=== PATIENT | female | born 1995 | race Caucasian/White ===

== ENCOUNTER → 2022-09-10 09:20 | Outpatient (BNVA) | payer OTHER, SELFPAY | PROVIDERS: Visit Provider Nurse Practitioner Women's Health | DX: O09.899 Supervision of other high risk pregnancies, unspecified trimester (principal); O99.210 Obesity complicating pregnancy, unspecified trimester; Z3A.00 Weeks of gestation of pregnancy not specified | CPT/HCPCS: 81000; 81025; 83036; 84443; 85025 ==

== ENCOUNTER → 2022-10-01 08:15 | Outpatient (BNVA) | payer OTHER, SELFPAY | PROVIDERS: Visit Provider Obstetrics & Gynecology | DX: O09.899 Supervision of other high risk pregnancies, unspecified trimester (principal); O99.210 Obesity complicating pregnancy, unspecified trimester; Z12.4 Encounter for screening for malignant neoplasm of cervix | CPT/HCPCS: 80307; 84315; 87086; 87491; 87591; 88175 ==

== ENCOUNTER → 2022-10-04 10:21 | Outpatient (BNVA) | payer OTHER, SELFPAY | PROVIDERS: Visit Provider Obstetrics & Gynecology | DX: Z34.91 Encounter for supervision of normal pregnancy, unspecified, first trimester (principal); Z3A.10 10 weeks gestation of pregnancy | CPT/HCPCS: 76801 ==

== ENCOUNTER 2022-10-04 10:50 | Outpatient (CLI) | payer OTHER, SELFPAY ==
[2022-10-04 11:22] LABS: Hematocrit 39.2 % (37.0-47.0); Hemoglobin 12.6 g/dL (11.5-15.3); Mean Corpuscular HGB Conc 32.1 g/dL (30.0-36.0); Mean Corpuscular Hemoglobin 27.6 pg (28.0-34.0); Mean Platelet Volume 10.3 fL (7.4-10.4); Platelet Count 266 10^3/cmm (130-400); Red Blood Count 4.56 10^6/uL (4.1-5.3); Red Cell Distribution Width 13.2 % (12.1-15.1); White Blood Count 9.3 10^3/uL (4.0-10.0)
[2022-10-04 11:40] LABS: Glucose Tolerance 1 Hour Gest 84 mg/dL
[2022-10-04 11:58] LABS: Hepatitis B Surface Antigen Non-Reactive (Nonreactive); Hepatitis C Virus Antibody Non-Reactive (Nonreactive)
[2022-10-04 12:10] LABS: Total Volume, Urine 1825 mL
[2022-10-04 13:31] LABS: Rubella IgG 136.8 IU/mL (0.0-10.0)
[2022-10-04 13:48] LABS: Urine Total Protein 4.5 mg/dL (0-150); Urine Total Protein 24 Hour 82.1 mg/24hr (0-150)
[2022-10-04 17:33] LABS: HIV 1 & 2 Antibody Non-Reactive (Non-Reactiv); HIV 1 & 2 Antigen Non-Reactive (Non-Reactiv)
== END 2022-10-04 10:51 | disposition home or self-care (01) ==
LOC: LAB 10:54
PROVIDERS: Visit Provider Obstetrics & Gynecology
DX: O09.899 Supervision of other high risk pregnancies, unspecified trimester (principal); O99.210 Obesity complicating pregnancy, unspecified trimester
CPT/HCPCS: 36415; 82950; 84156; 85027; 86762; 86803; 86850; 86900; 87340; 87806

== ENCOUNTER → 2022-12-16 14:17 | Outpatient (BNVA) | payer OTHER, SELFPAY | PROVIDERS: Visit Provider Obstetrics & Gynecology | DX: Z36.9 Encounter for antenatal screening, unspecified (principal) | CPT/HCPCS: 76805 ==

== ENCOUNTER → 2023-01-23 11:11 | Outpatient (BNVA) | payer OTHER, SELFPAY | PROVIDERS: Visit Provider Nurse Practitioner Women's Health | DX: O09.899 Supervision of other high risk pregnancies, unspecified trimester (principal); Z3A.00 Weeks of gestation of pregnancy not specified | CPT/HCPCS: 76816; 82950; 84315; 86592 ==

== ENCOUNTER → 2023-02-07 11:30 | Outpatient (BNVA) | payer OTHER, SELFPAY | PROVIDERS: Visit Provider Obstetrics & Gynecology | DX: O09.899 Supervision of other high risk pregnancies, unspecified trimester (principal) | CPT/HCPCS: 84315; 85025; 86592 ==

== ENCOUNTER → 2023-03-10 08:30 | Outpatient (BNVA) | payer OTHER, SELFPAY | PROVIDERS: Visit Provider Obstetrics & Gynecology | DX: O09.899 Supervision of other high risk pregnancies, unspecified trimester (principal); Z3A.00 Weeks of gestation of pregnancy not specified | CPT/HCPCS: 81000 ==

== ENCOUNTER → 2023-04-07 13:34 | Outpatient (BNVA) | payer OTHER, SELFPAY | PROVIDERS: Visit Provider Obstetrics & Gynecology | DX: O09.899 Supervision of other high risk pregnancies, unspecified trimester (principal); Z3A.00 Weeks of gestation of pregnancy not specified | CPT/HCPCS: 84315; 87081 ==

== ENCOUNTER 2023-04-28 20:31 | Inpatient (IN) | payer OTHER, SELFPAY ==
[2023-04-28] VITALS (7 sets, daily range): BP systolic 114–131; BP diastolic 59–74; PULSE 91–103; RESP 16; TEMP 36.3; BMI 40.2
--- NOTE | 2023-04-28 21:35 | P.HP_ITS ---
Providers/Chief Complaint Admitting Physician: Solo Nava MD Primary EXPERIMENTAL AIRCRAFT MECHANIC: John Martinez MD Chief Complaint: induction of labor HPI EXPERIMENTAL AIRCRAFT MECHANIC History of Present Illness 27 y.o. EDC May 02, 2023 At 39 w 3 d No complications Admitted for elective induction of labor No c/o + active movements POBHx: [birth year], female, , 9 lbs; PPH, required 2 U PRBCs; no GDM PMHx: none PSHx: none NKDA Present Details : 2 Para: 1 Labs Rubella: Immune RPR: Results in [employer] GBS: Negative Medications/Allergies Home Medications Medication Instructions Recorded Confirmed Last Taken Type sertraline 25 mg tablet 25 mg PO DAILY 04/07/23 04/28/23 1 Day Ago History ~04/27/23 hydrocortisone 1 % topical cream 1 applic topical TID PRN skin 04/14/23 04/28/23 Unknown Rx (Preparation H Hydrocortisone) irritation #28.4 grams vitamin #56-iron 35 mg 1 cap PO DAILY 04/28/23 04/28/23 1 Day Ago History and 5 mg-folic acid 1 mg-dha ~04/27/23 capsule Allergies Allergy/AdvReac Type Severity Reaction Status Date / Time No Known Allergies Allergy Verified 04/28/23 10:50 PFSH EXPERIMENTAL AIRCRAFT MECHANIC PFSH: Medical History No pertinent past medical history neghx: htn,dm,thyroid,dvt/pe PCP: None Surgical History No pertinent past surgical history Family History Unknown Family history unknown patient adopted. History History History 2 Term 1 0 Miscarriages/Ectopic 0 Living Children 1 Care ROBERT Calculator Estimated Delivery Date Method Current WG Current Estimate 05/02/23 Ultrasound #1 39w 4d Other Estimates 04/23/23 LMP (Certain) 40w 6d Specific Issues/Plans * OBESITY * ANEMIA * HX PP HEMORRHAGE * MACROSOMIA Vitals/I&O/Wt Last Vital Signs Temp 97.6 F 04/29/23 20:48 Pulse 100 04/29/23 21:24 Resp 16 04/29/23 21:03 BP 120/69 04/29/23 21:24 Pulse Ox 94 04/29/23 17:43 O2 Del Method Room Air 04/29/23 20:15 04/29/23 04/29/23 04/29/23 06:59 14:59 22:59 Intake Total 54.800 / 54.800 1053.667 / 5188.353 1313.950 / 3006.617 Output Total 50 / 50 Balance 54.800 / 54.800 1053.667 / 4889.326 2179.950 / 2956.617 Weight last 48 hrs Weight 220 lb Physical Exam Narrative: Weight 220 lbs; 5?2? VS normal HEENT: normal Lungs: clear Cor: RRR Abd: soft FH 37 cm; cephalic Cx 2 cm / 25% / -3 / posterior External monitor: heart tracing good variability, + accelerations Urinary Catheter Management: Arechiga: Cath Placed During This Visit: yes, but has since been removed by the nurse Reason for Continuing Indwelling Catheter: Other Urinary Catheter Date of Insertion: 04/29/23 Urinary Catheter Time of Insertion: 17:40 Date Urinary Catheter Removed: 04/29/23 Time Urinary Catheter Discontinued: 19:55 Data 04/28/23 23:40 A&P Assessment and plan (1) Supervision of other high-risk : 39 w 3 d Admitted for labor induction Plan start pitocin h/o x one Attestations Medical Necessity Statement*: patient at 39 w 3 d, admitted for induction of labor Coding Level of Care Code Acute Code for Chg Fwd Diagnoses Supervision of other high-risk O09.899 Time Spent (min) 30
[2023-04-28] MEDS: dextrose 5%-lactated ringers 1,000 ML 125 ML IV (23:01)
[2023-04-28 23:48] LABS: Basophils % 0.1 %; Eosinophils # 0.1 10^3/uL (0.0-0.8); Eosinophils % 0.7 %; Hematocrit 31.4 % (37.0-47.0); Hemoglobin 10.1 g/dL (11.5-15.3); Lymphocytes # 2.1 10^3/uL (0.8-4.8); Lymphocytes % 23.3 %; Mean Corpuscular HGB Conc 32.2 g/dL (30.0-36.0); Mean Corpuscular Hemoglobin 26.9 pg (28.0-34.0); Mean Corpuscular Volume 83.7 fl (81-99); Mean Platelet Volume 11.9 fL (7.4-10.4); Monocytes # 0.6 10^3/uL (0.2-0.9); Monocytes % 6.5 %; Neutrophils # 6.25 10^3/uL (1.8-7.7); Neutrophils % 68.5 %; Nucleated Red Blood Cells % 0 %; Platelet Count 178 10^3/cmm (130-400); Red Blood Count 3.75 10^6/uL (4.1-5.3); White Blood Count 9.1 10^3/uL (4.0-10.0)
[2023-04-29] VITALS (108 sets, daily range): BP systolic 99–173; BP diastolic 53–101; PULSE 76–122; RESP 16–20; TEMP 35.9–37; O2SAT 75–100
[2023-04-29] MEDS: dextrose 5%-lactated ringers 1,000 ML 125 ML IV (11:16)
[2023-04-29] MEDS: fentaNYL 50 mcg/mL INJ 2mL IVP ×2 (14:31→15:31)
[2023-04-29] MEDS: lactated ringers 1,000 ML 999 ML IV (15:30)
[2023-04-29] MEDS: ondansetron 2 mg/ML SDV 2 mL 4 MG IVP (16:01)
--- NOTE | 2023-04-29 17:13 | ANES.PREANE2 ---
Pre-Anesthetic Assessment Height/Weight: Height 1.57 m Weight 99.79 kg Temp Pulse Resp BP Pulse Ox O2 Del Method 97.0 F L 106 H 20 H 118/69 100 Room Air 04/29/23 16:26 04/29/23 17:11 04/29/23 15:31 04/29/23 17:11 04/29/23 17:07 04/29/23 06:13 Preop Diagnosis: IUP Labor Epidural Familial anesthetic complications: None Last intake: 04/29/23 0900 meal clears- current Social No alcohol and No tobacco Exam alert, oriented x 3 and clear to auscultation bilaterally Airway Submandibular: within normal limits Cervical ROM: within normal limits Mallampati: Class II Dentition: full History/ROS No significant history except as noted Pulmonary None reported CV/HEM None reported None reported Hepatic None reported GI None reported Metabolic Morbid Ob[place] [facility] [place] None reported Neuropsych None reported Anesthetic Plan ASA status: 2 Anesthesia: Regional (specify below) Other: Labor Epidural Medications/Allergies Home Medications Medication Instructions Recorded Confirmed Last Taken Type sertraline 25 mg tablet 25 mg PO DAILY 04/07/23 04/28/23 1 Day Ago History ~04/27/23 hydrocortisone 1 % topical cream 1 applic topical TID PRN skin 04/14/23 04/28/23 Unknown Rx (Preparation H Hydrocortisone) irritation #28.4 grams vitamin #56-iron 35 mg 1 cap PO DAILY 04/28/23 04/28/23 1 Day Ago History and 5 mg-folic acid 1 mg-dha ~04/27/23 capsule Allergies Allergy/AdvReac Type Severity Reaction Status Date / Time No Known Allergies Allergy Verified 04/28/23 10:50 Current Medications Generic Name Dose Route Start Last Admin Trade Name Freq PRN Reason Stop Dose Admin Fentanyl 25 - 100 mcg 04/28/23 20:47 04/29/23 15:31 Fentanyl 50 Mcg/Ml Inj 2ml IVP 50 mcg Q1H PRN Administration SEVERE PAIN Dextrose/Lactated Ringer's 1,000 mls @ 125 mls/hr 04/28/23 21:00 04/29/23 15:30 Dextrose 5%-Lactated Ringers IV 0 mls/hr .Q8H PANDA Infusion Oxytocin 30 unit/ Sodium 503 mls @ 1 mls/hr 04/28/23 23:00 04/29/23 15:20 Chloride IV 18 mls/hr .Q24H PANDA 18 mls/hr Titration Protocol Lactated Ringer's 1,000 mls @ 999 mls/hr 04/29/23 15:28 04/29/23 16:15 Lactated Ringers IV 125 mls/hr .Q1H1M PRN Infusion See label comments Ondansetron HCl 4 mg 04/28/23 20:47 04/29/23 16:01 Ondansetron 2 Mg/Ml Sdv 2 Ml IVP 4 mg Q4H PRN Administration NAUSEA AND VOMITING PFSH Anesthesia Medical History No pertinent past medical history neghx: htn,dm,thyroid,dvt/pe PCP: None Surgical History No pertinent past surgical history Family History Unknown Family history unknown patient adopted. Female Reproductive History : 2 Data Anesthesia 04/28/23 23:40 Short CBC 04/28/23 04/28/23 Range/Units 22:22 23:40 WBC Cancelled 9.1 Hgb Cancelled 10.1 L Hct Cancelled 31.4 L MCV Cancelled 83.7 Plt Count Cancelled 178 Neut % (Auto) Cancelled 68.5 Neut # (Auto) Cancelled 6.25 Cardiac Studies: No Data to Display Anesthesia Procedures Epidural Time Out Performed: Yes Consent: from patient, risks and benefits reviewed and patient agrees to proceed Lumbar Level: L3-L4 Epidural position: sitting Epidural procedure: sterile prep of area, 1% lidocaine to numb the area, negative for paresthesia passed, test dose given, 1.5% xylocaine 1:200k epi, placed PCEA, no systemic response, sterile dressing applied, L.U.D. no apparent complications and 0.2% Ropiavacaine @ mls/hr (10) Additional Comments: PADMINI at 7.5cm on third attempt. Catheter threaded to 14cm with ease. 100mcg Fentanyl given via epidural, remaining saline and lidocaine given via epidural. VSS patient reports relief of contractions.
--- NOTE | 2023-04-29 17:50 | P.PN_ITS ---
CIRCUIT DESIGN ENGINEER Subjective Subjective: Interval history: April 29, 2023, 1750 Fetus reassuring Comfortable with epidural Cx:?? 6 cm / 100 / -1? /? BBOW AROM,? clear fluid Labor: Station: +1 Amniotic Membrane Status: Ruptured Monitor Mode: External Contraction Pattern: Irregular Vitals/I&O/Wt Last Vital Signs Temp 97.6 F 04/29/23 20:48 Pulse 100 04/29/23 21:39 Resp 16 04/29/23 21:03 BP 107/62 04/29/23 21:39 Pulse Ox 94 04/29/23 17:43 O2 Del Method Room Air 04/29/23 20:15 04/29/23 04/29/23 04/29/23 06:59 14:59 22:59 Intake Total 54.800 / 54.800 1053.667 / 1131.780 4740.950 / 3006.617 Output Total 50 / 50 Balance 54.800 / 54.800 1053.667 / 8149.471 3840.950 / 2956.617 Weight last 48 hrs Weight 220 lb Physical Exam Urinary Catheter Management: Arechiga: Cath Placed During This Visit: yes, but has since been removed by the nurse Reason for Continuing Indwelling Catheter: Other Urinary Catheter Date of Insertion: 04/29/23 Urinary Catheter Time of Insertion: 17:40 Date Urinary Catheter Removed: 04/29/23 Time Urinary Catheter Discontinued: 19:55 Data 04/28/23 23:40 A&P Assessment and plan (1) Supervision of other high-risk : Attestations Medical Necessity Statement*: patient at 39 w 4 d, undergoing induction of labor Coding Level of Care Code Acute Code for Chg Fwd Diagnoses Supervision of other high-risk O09.899 Time Spent (min) 20
--- NOTE | 2023-04-29 20:35 | PM.DELIVERY ---
Delivery Note: Date of delivery: April 29, 2023 Pre-delivery diagnoses: 39 + weeks gestation induction of labor Post-delivery diagnoses: same vaginal delivery Procedure: vaginal delivery repair of second-degree perineal laceration Delivering Physician: Solo Nava MD Estimated blood loss (mL): 300 Pre-Delivery Course: patient received pitocin IV for labor induction Delivery: , vigorous female Normal placenta and cord Cord gases and blood obtained Second-degree perineal laceration repaired EBL:?? 300 cc Complications:??? none Post-Delivery Status: stable History History History 2 Term 1 0 Miscarriages/Ectopic 0 Living Children 1 A&P Assessment and plan (1) Vaginal delivery: Coding Level of Care Code Acute Code for Chg Fwd Diagnoses Vaginal delivery O80 Time Spent (min) 45
--- NOTE | 2023-04-29 20:35 | P.PN_ITS ---
FIRMWARE TEST ENGINEER Subjective Subjective: Interval history: April 29, 2023,? 2034 DELIVERY NOTE , vigorous female Normal placenta and cord Cord gases and blood obtained Second-degree perineal laceration repaired EBL:?? 300 cc Complications:??? none Labor: Station: +1 Amniotic Membrane Status: Ruptured Monitor Mode: External Contraction Pattern: Irregular Vitals/I&O/Wt Last Vital Signs Temp 97.6 F 04/29/23 20:48 Pulse 100 04/29/23 21:39 Resp 16 04/29/23 21:03 BP 107/62 04/29/23 21:39 Pulse Ox 94 04/29/23 17:43 O2 Del Method Room Air 04/29/23 20:15 04/29/23 04/29/23 04/29/23 06:59 14:59 22:59 Intake Total 54.800 / 54.800 1053.667 / 1090.767 3644.950 / 3006.617 Output Total 50 / 50 Balance 54.800 / 54.800 1053.667 / 4311.918 6215.950 / 2956.617 Weight last 48 hrs Weight 220 lb Physical Exam Urinary Catheter Management: Arechiga: Cath Placed During This Visit: yes, but has since been removed by the nurse Reason for Continuing Indwelling Catheter: Other Urinary Catheter Date of Insertion: 04/29/23 Urinary Catheter Time of Insertion: 17:40 Date Urinary Catheter Removed: 04/29/23 Time Urinary Catheter Discontinued: 19:55 Data 04/28/23 23:40 A&P Assessment and plan (1) Supervision of other high-risk : Attestations Medical Necessity Statement*: patient at 39 w 4 d, induction of labor, vaginal delivery Coding Level of Care Code Acute Code for Chg Fwd Diagnoses Supervision of other high-risk O09.899 Time Spent (min) 45
[2023-04-30] VITALS (7 sets, daily range): BP systolic 105–134; BP diastolic 57–71; PULSE 88–120; RESP 16–18; TEMP 36.9–37.2; O2SAT 97–100
[2023-04-30] MEDS: HYDROcodone-acetaminophen 5-325 mg Tablet PO (00:20)
--- NOTE | 2023-04-30 08:00 | ANE.PACU2 ---
Inpatient post-anesthesia follow up: Airway intact: Yes Vital signs: Temperature 98.9 F Pulse Rate 120 Respiratory Rate 16 Blood Pressure 134/57 Pulse Oximetry 98 Oxygen Delivery Me thod Room Air Oxygen Flow Rate Fraction of Inspir ed Oxygen Hydration adequate: Yes Nausea and vomiting: Yes Pain level: 1 Mental status: Baseline
[2023-04-30] MEDS: docusate sodium 100 mg Capsule PO (09:16)
[2023-04-30] MEDS: prenatal vitamin Capsule 1 CAP PO (09:16)
[2023-04-30] MEDS: ibuprofen 800 mg tablet PO ×2 (09:16→15:36)
[2023-04-30 10:24] LABS: Hematocrit 26.3 % (37.0-47.0); Hemoglobin 8.4 g/dL (11.5-15.3); Mean Corpuscular HGB Conc 31.9 g/dL (30.0-36.0); Mean Corpuscular Hemoglobin 26.9 pg (28.0-34.0); Mean Corpuscular Volume 84.3 fl (81-99); Mean Platelet Volume 12.1 fL (7.4-10.4); Platelet Count 169 10^3/cmm (130-400); Red Blood Count 3.12 10^6/uL (4.1-5.3); Red Cell Distribution Width 15.1 % (12.1-15.1); White Blood Count 15.8 10^3/uL (4.0-10.0)
--- NOTE | 2023-04-30 12:20 | P.DS_ITS ---
Discharge Providers LITHOGRAPHIC PLATE MAKER Date of Admission: 04/28/23 20:31 Date of Discharge: 04/30/23 Attending Provider at Admission: Solo Nava MD Attending Provider at Discharge: Solo Nava MD Diagnoses at Discharge Discharge Diagnosis (1) Encounter for care and examination after delivery: Status: Acute Reason for Visit Reason for Visit: induction of labor Hospital Course Hospital Course patient did well post , normal course Information Peripartum Data: Delivery Method: Vaginal Physical Exam Urinary Catheter Management: Arechiga: Cath Placed During This Visit: yes, but has since been removed by the nurse Reason for Continuing Indwelling Catheter: Other Urinary Catheter Date of Insertion: 04/29/23 Urinary Catheter Time of Insertion: 17:40 Date Urinary Catheter Removed: 04/29/23 Time Urinary Catheter Discontinued: 19:55 History History History 2 Term 1 0 Miscarriages/Ectopic 0 Living Children 1 Discharge Data Studies Completed and Pending Laboratory Results WBC 15.8 10^3/uL (4.0-10.0) H 04/30/23 09:34 Corrected WBC Cancelled 04/28/23 22:22 RBC 3.12 10^6/uL (4.1-5.3) L 04/30/23 09:34 Hgb 8.4 g/dL (11.5-15.3) L 04/30/23 09:34 Hct 26.3 % (37.0-47.0) L 04/30/23 09:34 MCV 84.3 fl (81-99) 04/30/23 09:34 MCH 26.9 pg (28.0-34.0) L 04/30/23 09:34 MCHC 31.9 g/dL (30.0-36.0) 04/30/23 09:34 RDW 15.1 % (12.1-15.1) 04/30/23 09:34 Plt Count 169 10^3/cmm (130-400) 04/30/23 09:34 MPV 12.1 fL (7.4-10.4) H 04/30/23 09:34 Gran % Cancelled 04/28/23 22:22 Neut % (Auto) 68.5 % 04/28/23 23:40 Lymph % (Auto) 23.3 % 04/28/23 23:40 Coffee % (Auto) 6.5 % 04/28/23 23:40 Eos % (Auto) 0.7 % 04/28/23 23:40 Baso % (Auto) 0.1 % 04/28/23 23:40 Neut # (Auto) 6.25 10^3/uL (1.8-7.7) 04/28/23 23:40 Lymph # (Auto) 2.1 10^3/uL (0.8-4.8) 04/28/23 23:40 Coffee # (Auto) 0.6 10^3/uL (0.2-0.9) 04/28/23 23:40 Eos # (Auto) 0.1 10^3/uL (0.0-0.8) 04/28/23 23:40 Baso # (Auto) 0.0 10^3/uL (0.0-0.1) 04/28/23 23:40 Absolute Gran (auto) Cancelled 04/28/23 22:22 Nucleated RBC % (auto) 0 % 04/28/23 23:40 Nucleated RBCs # 0.0 /100WBC 04/28/23 23:40 Vitals Last Vital Signs Temp 98.9 F 04/30/23 22:11 Pulse 120 H 04/30/23 22:11 Resp 16 04/30/23 22:11 BP 134/57 04/30/23 22:11 Pulse Ox 98 04/30/23 22:11 O2 Del Method Room Air 04/30/23 15:30 Discharge Plan Discharge Patient Disposition: Home Condition: Stable Prescriptions: Continued sertraline 25 mg tablet 25 mg PO DAILY PNV #[id number] acid-dha 35 mg iron-5 mg iron-1 mg Capsule 1 cap PO DAILY No Action amoxicillin-pot clavulanate [Augmentin] 500-125 mg tablet 1 tab PO BID Qty: 14 0RF ibuprofen 200 mg Tablet 600 mg PO Q6H PRN (Reason: Pain, Mild) Discharge Orders: Discharge Order (Routine); Ordered 04/30/23 Ordered By: Solo Nava Referrals: Lynsey Jiménez [Referring] - 05/09/23 10:20 am Discharge Diet: Usual diet Discharge Activity: Increase activity as tolerated Patient Instructions: Depression (GEN), Perineal Care (GEN), Your Baby (GEN), and Nipple Soreness (GEN), and Breast Engorgement (GEN), How to Increase Your Milk Supply (GEN), How to Tell if Your Baby is Getting Enough Breast Milk (GEN), and Your Diet (GEN), Bleeding (GEN), Preeclampsia and Eclampsia After Delivery (GEN), OB Care at Home, Opioid Safety, Depression Discharge Attestations LITHOGRAPHIC PLATE MAKER Time Spent in Discharge Care*: less than 30 min Coding Level of Care Code Acute Code for Chg Fwd Diagnoses Encounter for care and examination after delivery Z39.2 Time Spent (min) 20
--- NOTE | 2023-04-30 12:20 | P.PN_ITS ---
PHYSICIANS AND SURGEONS Subjective Subjective: Interval history: no c/o no bleeding, pain eating, voiding, ambulating well caring for without any problems Labor: Station: +1 Amniotic Membrane Status: Ruptured Monitor Mode: External Contraction Pattern: Irregular Vitals/I&O/Wt Last Vital Signs Temp 98.9 F 04/30/23 22:11 Pulse 120 H 04/30/23 22:11 Resp 16 04/30/23 22:11 BP 134/57 04/30/23 22:11 Pulse Ox 98 04/30/23 22:11 O2 Del Method Room Air 04/30/23 15:30 Physical Exam Narrative: afebrile, VS normal comfortable, awake, alert Abd: soft, nontender. fundus firm Ext: no edema; nontender Urinary Catheter Management: Arechiga: Cath Placed During This Visit: yes, but has since been removed by the nurse Reason for Continuing Indwelling Catheter: Other Urinary Catheter Date of Insertion: 04/29/23 Urinary Catheter Time of Insertion: 17:40 Date Urinary Catheter Removed: 04/29/23 Time Urinary Catheter Discontinued: 19:55 Data 04/30/23 09:34 A&P Assessment and plan (1) Encounter for care and examination after delivery: PPD #1 doing well discharge home today instructions and precautions given call/return if fever, chills, headache, blurry vision, nausea, vomiting, abdominal pain; vaginal bleeding or discharge; shortness of breath, chest pain, leg pains or swelling; inability to void, perineal pain or swelling; feelings of depression or mood changes; thoughts of suicide or harming others; inability to care for baby. f/u in 6 weeks or PRN Attestations Medical Necessity Statement*: patient s/p , PPD #1, plan discharge home Coding Level of Care Code Acute Code for Chg Fwd Diagnoses Encounter for care and examination after delivery Z39.2 Time Spent (min) 20
== END 2023-04-30 22:12 | disposition home or self-care (01) | DRG 807 ==
LOC: OPOB 20:33 → OBGYN 20:33
PROVIDERS: Admitting Provider Obstetrics & Gynecology; Visit Provider Obstetrics & Gynecology
DX: O99.214 Obesity complicating childbirth (principal); Z37.0 Single live birth; O99.02 Anemia complicating childbirth; D64.9 Anemia, unspecified; O70.1 Second degree perineal laceration during delivery; Z3A.39 39 weeks gestation of pregnancy
CPT/HCPCS: 36415; 51702; 59025; 59409; 84315; 85025; 85027; 96374; 96375; 96376; 99211; J2405; J2795; J3010; J7040; J7120; J7121

== ENCOUNTER 2023-05-03 02:14 | Inpatient (IN) | payer OTHER, SELFPAY ==
[2023-05-03] VITALS (7 sets, daily range): BP systolic 107–121; BP diastolic 54–76; PULSE 70–114; RESP 14–16; TEMP 36.9–38.6; O2SAT 97–99; BMI 38.5
--- NOTE | 2023-05-03 03:10 | P.HP_ITS ---
Providers/Chief Complaint Admitting Physician: Solo Nava MD Primary MINE INSPECTOR: Solo Nava MD Chief Complaint: Direct Admit from [facility] HPI MINE INSPECTOR History of Present Illness 27 y.o. s/p April 29, 2023 with repair of second-degree perineal laceration was seen in [place] ER c/o fever and lower abdominal pain x one day transferred here for treatment of endometritis in ER at [place], patient was given Gentamicin IV no nausea, vomiting no breast tenderness or engorgement no dysuria or back pain no leg pain or swelling Present Details : 2 Para: 2 Medications/Allergies Home Medications Medication Instructions Recorded Confirmed Last Taken Type sertraline 25 mg tablet 25 mg PO DAILY 04/07/23 05/03/23 05/02/23 History vitamin #56-iron 35 mg 1 cap PO DAILY 04/28/23 05/03/23 05/02/23 History and 5 mg-folic acid 1 mg-dha capsule ibuprofen 200 mg tablet 600 mg PO Q6H PRN Pain, Mild 05/03/23 05/03/23 05/02/23 History Allergies Allergy/AdvReac Type Severity Reaction Status Date / Time No Known Allergies Allergy Verified 04/28/23 10:50 PFSH MINE INSPECTOR PFSH: Medical History No pertinent past medical history neghx: htn,dm,thyroid,dvt/pe PCP: None Surgical History No pertinent past surgical history Family History Unknown Family history unknown patient adopted. History History History 2 Term 1 0 Miscarriages/Ectopic 0 Living Children 1 Care ROBERT Calculator Estimated Delivery Date Method Current WG Current Estimate 05/02/23 Ultrasound #1 40w 1d Other Estimates 04/23/23 LMP (Certain) 41w 3d Specific Issues/Plans * OBESITY * ANEMIA * HX PP HEMORRHAGE * MACROSOMIA Vitals/I&O/Wt Last Vital Signs Temp 99.2 F 05/03/23 21:10 Pulse 89 05/03/23 21:10 Resp 16 05/03/23 21:10 BP 121/76 05/03/23 21:10 Pulse Ox 97 05/03/23 21:10 O2 Del Method Room Air 05/03/23 21:10 05/03/23 05/03/23 05/03/23 06:59 14:59 22:59 Intake Total 110.417 / 110.417 100 / 100 133.333 / 233.333 Balance 110.417 / 110.417 100 / 100 133.333 / 233.333 Weight last 48 hrs Weight 211 lb Physical Exam Narrative: Weight ? 211? lbs,? 5?2? Temperature?? 100.2 Comfortable, awake, alert, appropriate Lungs:? clear Cor:? RRR Abd:? soft, nondistended ? Mild tenderness lower quadrants, no rebound Ext:? normal A&P Assessment and plan (1) endometritis: PPD #4 Fever, chills, lower abdominal pain endometritis no evidence of mastitis, pyelonephritis, or lower extremity thrombophlebitis Plan admit Plan Unasyn 3 Gms IV q6h Attestations Medical Necessity Statement*: patient is PPD #4 with fever and lower abdominal pain Coding Level of Care Code Acute Code for Chg Fwd Diagnoses endometritis O86.12 Time Spent (min) 60
[2023-05-03] MEDS: ampicillin-sulbactam 3 GM in sodium chloride 0.9% (plus) 50 ML IV ×4 (03:35→20:38)
[2023-05-03] MEDS: dextrose 5%-lactated ringers 1,000 ML 125 ML IV (03:36)
[2023-05-03] MEDS: acetaminophen 500 mg Tablet 1000 MG PO ×3 (04:54→18:52)
--- NOTE | 2023-05-03 17:50 | PM.OBGYPN ---
CUSTOM PROTECTION OFFICER Subjective Subjective: Interval history: No c/o States lower abdominal pain much better Eating, voiding, ambulating well Vitals/I&O/Wt Last Vital Signs Temp 99.2 F 05/03/23 21:10 Pulse 89 05/03/23 21:10 Resp 16 05/03/23 21:10 BP 121/76 05/03/23 21:10 Pulse Ox 97 05/03/23 21:10 O2 Del Method Room Air 05/03/23 21:10 05/03/23 05/03/23 05/03/23 06:59 14:59 22:59 Intake Total 110.417 / 110.417 100 / 100 133.333 / 233.333 Balance 110.417 / 110.417 100 / 100 133.333 / 233.333 Weight last 48 hrs Weight 211 lb Physical Exam Narrative: Tmax? 101.4 at 12 noon today ? Other temps low grade at 99 Awake, alert, appropriate, comfortable Abd:? soft, nondistended, nontender Ext:? normal A&P Assessment and plan (1) endometritis: PPD #4 Fever, chills, lower abdominal pain endometritis continue Unasyn 3 Gms IV q6h Attestations Medical Necessity Statement*: patient is PPD #4 with endometritis Coding Level of Care Code Acute Code for Chg Fwd Diagnoses endometritis O86.12 Time Spent (min) 20
[2023-05-04] MEDS: acetaminophen 500 mg Tablet 1000 MG PO ×3 (00:14→21:50)
[2023-05-04 00:16] VITALS: BP 120/78; PULSE 77; RESP 16; TEMP 36.6; O2SAT 98
[2023-05-04] MEDS: ampicillin-sulbactam 3 GM in sodium chloride 0.9% (plus) 50 ML IV ×4 (02:24→20:10)
[2023-05-04 05:01] VITALS: BP 120/81; PULSE 81; RESP 16; TEMP 36.8; O2SAT 98
[2023-05-04 11:00] VITALS: BP 110/65; PULSE 64; RESP 16; TEMP 36.9
--- NOTE | 2023-05-04 12:35 | PM.OBGYPN ---
FORMULATION CHEMIST Subjective Subjective: Interval history: No c/o No pain Eating, voiding, ambulating well Vitals/I&O/Wt Last Vital Signs Temp 97.7 F 05/05/23 12:15 Pulse 87 05/05/23 12:15 Resp 16 05/05/23 12:15 BP 135/87 05/05/23 12:15 Pulse Ox 99 05/05/23 04:00 O2 Del Method Room Air 05/05/23 11:42 Physical Exam Narrative: Tmax 99.2, remainder of temps less than 99 VS normal Comfortable, awake, alert Abd: soft, nontender Ext: normal A&P Assessment and plan (1) endometritis: PPD #5 Admitted May 03, 2023 for Fever, chills, lower abdominal pain endometritis Temperatures much better continue Unasyn 3 Gms IV q6h If continue afebrile over next 24 hours, consider discharge to home tomorrow Attestations Medical Necessity Statement*: patient admitted for endometritis, on Unasyn Coding Level of Care Code Acute Code for Chg Fwd Diagnoses endometritis O86.12 Time Spent (min) 30
[2023-05-04 14:49] VITALS: TEMP 37.5
[2023-05-04 18:00] VITALS: BP 122/70; PULSE 67; RESP 15; TEMP 37.5
[2023-05-04 21:43] VITALS: BP 118/78; PULSE 67; RESP 15; TEMP 36.9; O2SAT 98
[2023-05-05] MEDS: ampicillin-sulbactam 3 GM in sodium chloride 0.9% (plus) 50 ML IV ×2 (02:12→08:51)
[2023-05-05 04:00] VITALS: BP 111/74; PULSE 76; RESP 16; TEMP 36.9; O2SAT 99
[2023-05-05] MEDS: acetaminophen 500 mg Tablet 1000 MG PO (07:45)
[2023-05-05] MEDS: ibuprofen 800 mg tablet PO (08:51)
[2023-05-05 11:42] VITALS: BP 135/87; PULSE 87; RESP 16; TEMP 36.5
[2023-05-05 12:15] VITALS: BP 135/87; PULSE 87; RESP 16; TEMP 36.5
--- NOTE | 2023-05-05 13:10 | PM.OBGYPN ---
KOSHER DIETARY SERVICE MANAGER Subjective Subjective: Interval history: No c/o No pain Eating, voiding, ambulating well Vitals/I&O/Wt Last Vital Signs Temp 97.7 F 05/05/23 12:15 Pulse 87 05/05/23 12:15 Resp 16 05/05/23 12:15 BP 135/87 05/05/23 12:15 Pulse Ox 99 05/05/23 04:00 O2 Del Method Room Air 05/05/23 11:42 Physical Exam Narrative: Tmax 98.8 VS normal Comfortable, awake, alert Abd: soft, nontender Ext: normal A&P Assessment and plan (1) endometritis: PPD #6 Admitted May 03, 2023 for Fever, chills, lower abdominal pain endometritis Has been afebrile more than 24 hours Plan discharge home today Patient does not need any further antibiotics Call/return if fever, chills, abdominal pain, vaginal bleeding f/u in one week Attestations Medical Necessity Statement*: patient admitted for endometritis, clinically resolved. plan discharge home today. Coding Level of Care Code Acute Code for g Fwd Diagnoses endometritis O86.12 Time Spent (min) 30
--- NOTE | 2023-05-05 13:30 | P.DS_ITS ---
Discharge Providers LIGHTOUT EXAMINER Date of Admission: 05/03/23 02:14 Date of Discharge: 05/05/23 Attending Provider at Admission: Solo Nava MD Attending Provider at Discharge: Solo Nava MD Diagnoses at Discharge Discharge Diagnosis (1) endometritis: Details from hospital stay: patient received Unasyn IV became afebrile x more than 24 hours Status: Resolved Reason for Visit Reason for Visit: Direct Admit from [facility] Hospital Course Hospital Course 27 y.o. s/p April 29, 2023 was discharge home on PPD #2 at home, began to have fever, chills, abdominal pain on May 03, 2023 re-admitted for treatment of endometritis Physical Exam Const: COMMON NORMALS: no acute distress, patient oriented x3, healthy appeari ng and alert Resp: COMMON NORMALS: normal respiratory effort, No retractions, No use of accessory muscles and clear to auscultation bilaterally AUSCULTATION: clear to auscultation bilaterally Cardio: COMMON NORMALS: regular rate and regular rhythm RATE: regular rate RHYTHM: regular rhythm GI: COMMON NORMALS: Normal to inspection, nondistended, normoactive bowel sounds present, Soft to palpation and non-tender PALPATION: Yes Soft to palpation Neuro: COMMON NORMALS: patient oriented x3 SENSORIUM/ORIENTATION: Yes alert History History History 2 Term 1 0 Miscarriages/Ectopic 0 Living Children 1 Discharge Data Procedures Performed IV antibiotics Vitals Last Vital Signs Temp 97.7 F 05/05/23 12:15 Pulse 87 05/05/23 12:15 Resp 16 05/05/23 12:15 BP 135/87 05/05/23 12:15 Pulse Ox 99 05/05/23 04:00 O2 Del Method Room Air 05/05/23 11:42 Discharge Plan Discharge Patient Disposition: Home Condition: Stable Prescriptions: Continued sertraline 25 mg tablet 25 mg PO DAILY PNV #[id number] acid-dha 35 mg iron-5 mg iron-1 mg Capsule 1 cap PO DAILY ibuprofen 200 mg Tablet 600 mg PO Q6H PRN (Reason: Pain, Mild) Discharge Orders: Discharge Order (Routine); Ordered 05/05/23 Ordered By: Solo Nava Referrals: Solo Nava MD [Physician] - 05/12/23 9:30 am Discharge Diet: Usual diet Discharge Activity: Resume usual activity Patient Instructions: Ampicillin/Sulbactam (By injection) ([facility]mer[facility] Choice Ampicillin and..., Endometritis (GEN) Activity Restrictions/Additional Instructions: follow-up appointment in on week call Dr. Nava at cell: [phone] if fever, chills, abdominal pain, bleeding Discharge Attestations LIGHTOUT EXAMINER Time Spent in Discharge Care*: less than 30 min Coding Level of Care Code Acute Code for Chg Fwd Diagnoses endometritis O86.12 Time Spent (min) 20
== END 2023-05-05 12:25 | disposition home or self-care (01) | DRG 776 ==
LOC: OBGYN 02:14 → OPOB 05-04 08:07 → OBGYN 05-04 08:07
PROVIDERS: Admitting Provider Obstetrics & Gynecology; Visit Provider Obstetrics & Gynecology
DX: O86.12 Endometritis following delivery (principal)
CPT/HCPCS: J0295; J7121

== ENCOUNTER 2023-05-10 10:59 | Outpatient (CLI) | payer OTHER, SELFPAY ==
[2023-05-10 11:39] LABS: Add Urine Microscopic? YES; Bilirubin Urine 1+ (Negative); Blood Urine 3+ (Negative); Glucose Urine UA Norm (Normal); Ketones Urine 1+ (Negative); Leukocyte Esterase Urine 2+ (Negative); Nitrate Urine Negative (Negative); Protein Urine Neg (Negative); Urine Appearance Cloudy (CLEAR); Urine Color Yellow (Yellow); Urobilinogen Urine 1 mg/dL (Negative); pH Urine 6 (5-7)
[2023-05-10 11:41] LABS: WBC Urine 15-25 /hpf (0-5)
[2023-05-10 11:42] LABS: Bacteria Urine 2+ /hpf; Mucus Urine 2+ /hpf
[2023-05-10 11:46] LABS: Add Urine Culture? No
== END 2023-05-10 11:00 | disposition home or self-care (01) ==
PROVIDERS: PCP Registered Nurse; Visit Provider Obstetrics & Gynecology
DX: Z01.89 Encounter for other specified special examinations (principal)
CPT/HCPCS: 81001; 87086